=== PATIENT | male | born 1975 ===

== ENCOUNTER 2017-02-01 21:39 | Observation (INO) ==
[2017-02-01] MEDS ORDERED: ALUM/MAG/SIMETH/LIDO VISC 1:1 30 ML BOTTLE PO STA (22:03)
[2017-02-01] MEDS ORDERED: ALUM/MAG/SIMETH/LIDO VISC 1:1 30 ML BOTTLE PO ONE (22:07)
[2017-02-01 22:27] LABS: Basophils % 0.2 % (0.0-0.8); Eosinophils # 0.1 10*3/uL (0.0-0.87); Eosinophils % 0.8 % (0.00-10.9); Hematocrit 44.8 VOL% (42.0-52.0); Hemoglobin 15.7 GM/DL (14.0-18.0); Immature Granulocytes % 0.3 %; Immature Granulocytes Absolute 0.03 #; Lymphocytes # 1.7 10*3/uL (1.4-4.0); Lymphocytes % 16.3 % (21.2-54.2); Mean Corpuscular Hemoglobin 31 PG (27-34); Mean Corpuscular Volume 88.7 FL (87-102); Mean Platelet Volume 9.7 FL (9.6-12.0); Monocytes % 9.5 % (1.7-12.7); Neutrophils # 7.7 10*3/uL (1.4-7.4); Neutrophils % 72.9 % (38.7-73.9); Platelet Count 187 T/CUMM (130-400); Red Blood Count 5.05 MC/CUMM (3.8-5.5); Red Cell Distribution Width 13.5 % (9.3-17.3); White Blood Count 10.6 T/CUMM (4-12)
--- NOTE | 2017-02-01 22:39 | Emergency Department Note ---
IDeven Kasabria, am scribing for, and in the presence of, Moises Kirkland Jr., MD 22:09. Marita Phoenix Marvin Jr., MD, personally performed the services described in this documentation, ascribed by Thais Carvalho in my presence, and it is both accurate and complete . Arrival - Arrival Chief Complaint: Abdominal / Flank Pain Stated Complaint: SENT BY [facility] FOR ABD PAIN ED Nursing Triage Note: Patient to triage with c/o epigastric ABD pain since this morning and patient went to [facility] where he was dx with early appendicitis and sent here POV. Patient has CT report, image, records from [facility]. Mode of Arrival: Ambulatory Limitations: No Limitations Source: Patient, Old Records Reviewed (Records that were submitted from the other hospital.) - History of Present Illness HPI Narrative: This is a 41 y/o [place] male presenting to the ED with c/o epigastric abdominal pain that onset this morning. Pt was transferred from [facility] for further evaluation for appendicitis. Pt states the physician at [facility] did not see appendicitis but the radiologist stated appendicitis was present. Pt has had CT report, image, and records from [facility] transferred over with him. He states he has not had an appetite since the onset of the pain. He describes the pain as pressure. After receiving the GI cocktail at [facility] he felt better but 1 hour later the pain onset again. He was nauseated earlier this morning but since has resolved and he denies fever, chills, vomiting, diarrhea, and dysuria. His PMHx is consistent with "some kind of valve problem". Pt has been taking Ibuprofen for his right knee pain for one week. At the worst the pain was severe. Consistency: constant Severity: moderate Allergies/Adverse Reactions: Allergies Allergy/AdvReac Type Severity Reaction Status Date / Time No Known Allergies Allergy Unverified 02/01/17 21:50 Home Medications: Home Medications Medication Instructions Recorded Confirmed Type No Known Home Medications [No 02/01/17 02/01/17 History Known Home Medications] Review of System - Review of System 12 point system: reviewed and no additional remarkable complaints except as stated - Review of System Constitutional: Absent: chills, fever, weakness Eyes: Absent: vision change Head/Ears/Nose/Throat: Absent: nasal drainage Respiratory: Absent: cough, wheezing Cardiovascular: Absent: chest pain, dyspnea on exertion Gastrointestinal: Present: abdominal pain (epigastric pressure ). Absent: nausea, vomiting, diarrhea Genitourinary male: Absent: dysuria Musculoskeletal: Absent: arm pain, back pain Neurological: Absent: headache, weakness, confusion, vertigo Psychiatric: Absent: anxiety Endocrine: Absent: fatigue Hematological/Lymphatic: Absent: easy bleeding Allergic/Immunologic: Absent: facial swelling Medical,Surgical,& Family Hx - Medical History Cardio: History of: Cardiovascular Problems ("some kind of valve problem") - Social History Smoking Status: Never smoker Frequency of Alcohol Use: Occasionally Type of Drug Use: None Exam Physical Examination: General: Well-developed well-nourished, no apparent distress. Head: Normocephalic, atraumatic. Eyes: PERRLA, EOMI. Nose: No obvious acute deformities or discharge. Mouth: No obvious acute injury. Neck: Full range of motion without obvious pain. No midline tender to palpation. Lymphatic: no significant lymphadenopathy noted. Lungs: Clear to auscultation bilaterally, normal and equal air movement bilaterally, no obvious rales or wheezing. Heart: regular rate and rhythm, no obvious mummers. Abdomen: Soft nontender, nondistended, normal active bowel sounds. Patient says he is not tender to palpation but the pain is in his epigastric area Skin: No obivous acute lesions noted Musculoskeletal: No gross deformities. Neurological: No focal findings, cranial nerves II through XII grossly normal. Psychiatric: Appropriate mood.. : Deferred Vital Signs: Vital Signs Temperature 98.0 F 02/01/17 21:45 Pulse Rate 74 02/01/17 21:45 Respiratory Rate 18 02/01/17 21:45 Blood Pressure 147/81 02/01/17 21:45 O2 Sat by Pulse Oximetry 98 02/01/17 21:45 Course Course Narrative: Differential diagnosis, GERD, secondary to nonsteroidal drugs, hiatal hernia, acute appendicitis is possible but low probability considering the location and response to therapy. - Reevaluation(s) Reevaluation #1: This abdominal pain is epigastric and is not compatible clinically with acute appendicitis. His white count is normal also. I talked to Dr. Pang and he will admit this patient overnight for observation. Time: 22:38 Results - Labs CBC & BMP: 02/01/17 22:21 Lab Results: I have reviewed the patients labs Disposition Clinical Impression: Epigastric abdominal pain Case discussed with: patient, patient's family Disposition: Still a Patient Condition: Stable Time of Disposition: 22:39
[2017-02-01] MEDS ORDERED: ACETAMINOPHEN 325 MG TABLET PO PRN (23:17)
[2017-02-01] MEDS ORDERED: MORPHINE 2 MG/1 ML SYRINGE IV PRN (23:17)
[2017-02-01] MEDS ORDERED: ONDANSETRON 4 MG/2 ML VIAL IV PRN (23:17)
[2017-02-01] MEDS: DEXTROSE 5% NACL 0.45% 1,000 ML IV SCH (23:55)
[2017-02-02] MEDS: DEXTROSE 5% NACL 0.45% 1,000 ML IV SCH (08:16)
--- NOTE | 2017-02-02 08:45 | General Surg History&Physical ---
Assessment and Plan - Time spent with patient Time spent with patient: Greater than 30 minutes (1) Epigastric abdominal pain Status: Acute Assessment and plan: The etiology of this is unclear. I think it is clear that he does not have acute appendicitis. This could be gallbladder related or could be gastritis from ibuprofen usage. We will check a gallbladder ultrasound. Current Visit: Yes History of Present Illness Chief complaint: Abdominal pain History of present illness: Mr. Pederson is a 41 year old male Who had a sudden onset of epigastric pain yesterday morning. This pain lasted for several hours and then subsided and then returned. It is since resolved completely and he denies any pain this morning. He described the pain as severe and it did not radiate. He did not have nausea or vomiting associated with it. He does not know of aggravating or alleviating factors. He has been taking a good bit of ibuprofen because of recent knee problem. He has not had fever or chills. He had a CT scan that suggested early appendicitis. He has not had any pain in his lower abdomen or right lower quadrant. Home Medications Medication Instructions Recorded Confirmed Type No Known Home Medications [No 02/01/17 02/01/17 History Known Home Medications] Allergies Allergy/AdvReac Type Severity Reaction Status Date / Time No Known Allergies Allergy Unverified 02/01/17 21:50 Medical,Surgical,& Family Hx - Medical History Cardio: History of: Cardiovascular Problems ("some kind of valve problem") Musculoskeletal: Comment Only: Musculoskeletal Problems (right knee dislocation. brace in place.) - Surgical History Surgical History: noncontributory - Family History Family History: Reports;: Family Diabetes - Social History Smoking Status: Never smoker Frequency of Alcohol Use: Occasionally Type of Drug Use: None Exam - Constitutional Vitals: Period Temp Pulse Resp BP Sys/Edward Pulse Ox Last 24 Hr 98.0 F-98.6 F 58-74 16-20 121-147/70-81 96-98 General appearance: no acute distress - Head Head exam: Present: normocephalic - Eye Eye exam: Absent: scleral icterus - ENT Mouth exam: Present: normal voice - Neck Neck exam: Present: trachea midline. Absent: tenderness - Respiratory Respiratory exam: Present: clear to auscultation bilaterally. Absent: accessory muscle use - Cardiovascular Cardiovascular exam: Present: RRR - GI/Abdominal GI/Abdominal exam: Present: soft. Absent: distended, mass, tenderness, rebound - Back Exam Back exam: Present: normal inspection - Neurological Exam Neurological exam: Present: alert, oriented X3. Absent: motor sensory deficit Speech: Present: normal - Skin Skin exam: Present: normal color - Constitutional Constitutional: Absent: chills, fever(s), weight loss - EENT Nose, mouth and throat: Absent: hoarseness - Cardiovascular Cardiovascular: Absent: chest pain at rest, chest pain with activity, dyspnea, dyspnea on exertion, syncope - Respiratory Respiratory: Absent: dyspnea, hemoptysis, dyspnea on exertion - Gastrointestinal Gastrointestinal: Present: abdominal pain. Absent: hematemesis, hematochezia, nausea, vomiting, jaundice - Genitourinary Genitourinary: Absent: dysuria, hematuria - Musculoskeletal Musculoskeletal: Absent: back pain - Neurological Neurological: Absent: focal weakness, syncope - Endocrine Endocrine: Absent: polyuria Hematologic/Lymphatic: Absent: easy bleeding, easy bruising Results - Labs CBC & BMP: 02/01/17 22:21 Lab Results: I have reviewed the past 24 hour labs - Diagnostic Findings Procedure: CT Abdomen and Pelvis: report reviewed by me, Ultrasound: pending
--- NOTE | 2017-02-02 10:10 | Ultrasound Report ---
US gallbladder Indication: Epigastric pain. Comparison: CT abdomen pelvis dated February 01, 2017. Technique: Multiple longitudinal and transverse real-time sonographic images of the right upper quadrant of the abdomen are obtained. Findings: The liver measures 17.5 cm and demonstrates normal echogenicity without focal abnormality on submitted images. The gallbladder is normal in size and demonstrates no wall thickening, abnormal intraluminal echoes, or pericholecystic fluid. The sonographic Condon's sign is negative. The common duct measures 0.4 cm in diameter and there is no evidence of significant intrahepatic ductal dilation. Right kidney measures 11.0 cm. Pancreas obscured. IMPRESSION: Unremarkable right upper quadrant ultrasound. PROCEDURE INTERPRETED AT [facility] [place] DEPARTMENT OF RADIOLOGY Final Report Signed by: Dr Ananth Brown
[2017-02-02] MEDS: PANTOPRAZOLE 40 MG TABLET PO SCH (10:32)
--- NOTE | 2017-02-02 14:31 | Gastrointestinal Consult Note ---
<Ellie Lucia - Last Filed: 02/02/17 14:26> Assessment and Plan (1) Epigastric abdominal pain Status: Acute Assessment and plan: 02/02-sudden onset of epigastric pain on yesterday with associated nausea. Recent ibuprofen use for the past 1-2 weeks at [address] of abdomen at outside facility showed possible early signs of appendicitis. Gallbladder ultrasound normal. No prior endoscopy in past. Plan for tentative EGD tomorrow to further evaluate source of pain. Plan an addendum to followed by Dr. Krishna. Current Visit: Yes History of Present Illness Chief complaint: Epigastric pain History of present illness: Mr. Pederson is a 41 year old male who presented to the hospital with sudden onset of epigastric pain on yesterday. Patient states that he woke up around 10 AM yesterday shortly after waking he had a fairly sudden onset of epigastric pain. He states the pain was severe in nature at times but was not associated with any other symptoms. Patient states that the pain continued throughout the morning in which she had also some episodes of nausea later without vomiting. He presented to the [facility] for further evaluation. He underwent a CT scan of abdomen at [facility] and was found what was thought to be early signs of appendicitis. Patient however denied any lower abdominal right lower quadrant pain. No leukocytosis or fever. Patient denies any fever or chills associated with this. Denies any recent weight loss, night sweats, melena or hematochezia. Denies any history of peptic ulcer disease. Patient states the only change to his recent history is that 1-2 weeks ago he began taken upwards of 1200 mg of ibuprofen daily for pain associated to right knee injury. He does not smoke and states that he is only a social drinker. Hemoglobin stable at 15.7. No other lab work available at this time. Gallbladder ultrasound was unremarkable. Denies family history of gallbladder disease. Patient has never had endoscopy in the past. Denies any reflux, dysphagia, belching or bloating. Surgery has consulted and does not feel this is appendicitis at this time. Home Medications Medication Instructions Recorded Confirmed Type No Known Home Medications [No 02/01/17 02/01/17 History Known Home Medications] Allergies Allergy/AdvReac Type Severity Reaction Status Date / Time No Known Allergies Allergy Unverified 02/01/17 21:50 Medical,Surgical,& Family Hx - Medical History Cardio: History of: Cardiovascular Problems ("some kind of valve problem") Musculoskeletal: Comment Only: Musculoskeletal Problems (right knee dislocation. brace in place.) - Family History Family History: Reports;: Family Diabetes - Social History Smoking Status: Never smoker Frequency of Alcohol Use: Occasionally Type of Drug Use: None 12 point system: reviewed and no additional remarkable complaints except as stated - Constitutional Constitutional: Present: as per HPI - EENT Eyes: Present: as per HPI Ears: Present: as per HPI Nose, mouth and throat: Present: as per HPI - Cardiovascular Cardiovascular: Present: as per HPI - Respiratory Respiratory: Present: as per HPI - Gastrointestinal Gastrointestinal: Present: as per HPI, abdominal pain, nausea - Genitourinary Genitourinary: Present: as per HPI - Musculoskeletal Musculoskeletal: Present: as per HPI - Neurological Neurological: Present: as per HPI - Psychiatric Psychiatric: Present: as per HPI - Endocrine Endocrine: Present: as per HPI - Hematologic/Lymphatic Hematologic/Lymphatic: Present: as per HPI Exam - Constitutional Vitals: Period Temp Pulse Resp BP Sys/Edward Pulse Ox Last 24 Hr 97.6 F-98.6 F 55-74 16-20 121-147/70-81 96-98 General appearance: normal weight, no acute distress - Head Head exam: Present: normal inspection, normocephalic - Eye Eye exam: Present: other (lids and conjunctiva unremarkable). Absent: scleral icterus - ENT ENT exam: Present: normal exam, normal oropharynx - Neck Neck exam: Present: normal inspection - Respiratory Respiratory exam: Present: clear to auscultation bilaterally. Absent: rales, rhonchi, wheezes - Cardiovascular Cardiovascular exam: Present: regular rate and rhythm. Absent: diastolic murmur , JVD, systolic murmur - GI/Abdominal GI/Abdominal exam: Present: normal bowel sounds, tenderness, soft. Absent: ascites, distended, mass, organomegaly - Extremities Exam Extremities exam: Present: normal inspection, full ROM - Back Exam Back exam: Present: normal inspection - Neurological Exam Neurological exam: Present: alert, oriented X3 - Psychiatric Psychiatric exam: Present: normal affect, normal mood - Skin Skin exam: Present: normal color, warm, dry Results - Labs CBC & BMP: 02/01/17 22:21 Lab Results: I have reviewed the past 24 hour labs - Diagnostic Findings Procedure: CT Abdomen and Pelvis: report reviewed by me, Ultrasound: report reviewed by me <Bernard Krishna - Last Filed: 02/02/17 18:51> History of Present Illness Chief complaint: 3030 History of present illness: Mr. Pederson is a 41 year old male Exam - Constitutional Vitals: Period Temp Pulse Resp BP Sys/Edward Pulse Ox Last 24 Hr 97.6 F-98.6 F 55-74 16-20 105-147/59-81 95-98 Results - Labs CBC & BMP: 02/01/17 22:21
--- NOTE | 2017-02-03 08:43 | General Surgery Progress Note ---
Assessment and Plan (1) Epigastric abdominal pain Status: Acute Assessment and plan: The etiology of this is unclear. I think it is clear that he does not have acute appendicitis. This could be gallbladder related or could be gastritis from ibuprofen usage. We will check a gallbladder ultrasound. 02/03: The patient feels well and denies abdominal pain this morning. His abdomen is benign. The epigastric pain that he had a subsiding. He is for upper endoscopy this morning to see if he has a gastric ulcer. Current Visit: Yes Subjective Patient reports: Present: feels better. Absent: still having pain, nausea, vomiting Exam - Constitutional Vitals: Period Temp Pulse Resp BP Sys/Edward Pulse Ox Last 24 Hr 97.6 F-98.3 F 55-66 16-20 105-132/59-76 95-99 General appearance: no acute distress - Eye Eye exam: Absent: scleral icterus - Respiratory Respiratory exam: Absent: accessory muscle use - GI/Abdominal GI/Abdominal exam: Present: soft. Absent: distended, tenderness Results - Labs CBC & BMP: 02/01/17 22:21
[2017-02-03] MEDS ORDERED: LIDOCAINE 2% 5 ML VIAL ONE (10:00)
[2017-02-03] MEDS ORDERED: PROPOFOL 200 MG/20 ML VIAL IV ONE (10:00)
--- NOTE | 2017-02-03 10:20 | History and Physical Update ---
History and Physical Update - Physical Exam Mental Status: alert and oriented Heart: regular rate and rhythm Lung: clear to auscultation Abdomen: within normal limits Vitals: within normal limits
--- NOTE | 2017-02-03 10:25 | Operative Note ---
Pre-op diagnosis: Epigastric pain Procedure: EGD with biopsy 41-year-old male with complaints of epigastric pain history of nonsteroidal use now for EGD to further evaluate. Informed consent was obtained Patient was sedated with MAC anesthesia per anesthesia protocol. Patient placed left lateral decubitus position the Olympus flexible video upper endoscope was inserted into the oral cavity under direct vision the esophagus was intubated. Findings: Esophagus-normal proximal mid esophageal mucosa distal esophagus small hiatal hernia. Mild asymptomatic esophageal stricture is seen. No esophagitis, Nobles's or varices were identified. Stomach-normal insufflation. Diffuse gastritis is seen predominantly antrum the stomach biopsies were taken. Remainder stomach is normal to direct retroflexed views of the body fundus and cardia. No definite ulceration was identified. Pylorus-normal Duodenum-normal for the bulb and duodenum to the third portion of the duodenum. The patient tolerated procedure well and was discharged to recovery in good condition. Postop diagnosis: 1. Gastritis-continue PPI treatment avoid nonsteroidals. 2. Epigastric pain likely secondary to the above. Ultrasound was negative if symptoms persist consider HIDA scan but I suspect this is more gastritis related. Anesthesia: [facility] – [place] Surgeon / Physician: Bernard Krishna Estimated blood loss: none Specimens: other (Antral gastritis) Condition: stable Disposition: post procedure unit Results - Labs CBC & BMP: 02/01/17 22:21 Discharge Plan - Discharge Medications No Action No Known Home Medications [No Known Home Medications] - Follow Up or Referral - Forms/Instructions
--- NOTE | 2017-02-03 10:45 | Anesthesia Post-Op ---
Anesthesia Post OP - Post Ansesthetic Evaluation Patient seen in post op: Yes Resp: within normal limits CV: within normal limits Mental: within normal limits Temp: within normal limits [id number]: within normal limits Nausea and Vomiting: within normal limits Pain: within normal limits
[2017-02-03] MEDS: PANTOPRAZOLE 40 MG TABLET PO SCH (11:11)
[2017-02-03 12:35] VITALS: BP 114/69
--- NOTE | 2017-02-03 14:13 | Discharge Summary ---
Hospital Course - Hospital Course Hospital Course: The patient is a 41-year-old male who was admitted with concerns for early appendicitis. However, upon further evaluation this did not feel to be the case. Gallbladder ultrasound did not reveal any signs of cholecystitis either. Gastroenterology was consulted to perform an EGD and discovered gastritis. Patient was clinically much improved at the time of discharge as he was pain- free and tolerating oral intake without difficulty. He was discharged in good condition on PPI twice daily as well as diet information for gastritis and follow-up as needed. No complications to note. Diagnosis - Discharge Diagnosis (1) Gastritis Status: Acute Specialty Discharge - Follow Up or Referrals Follow up with: Bernard Krishna MD [Physician] - (As needed) Yair Pang III., MD [Physician] - (As needed) Discharge Plan - Discharge Data Disposition: Disch To Home/Self Care Condition at Discharge: Stable Discharge Diet: other (Diet as below) Activity: resume usual activities as tolerated Driving: no restrictions Contact your physician if you experience:: fever over 101, Nausea/Vomiting, Bleeding, pain uncontrolled by pain medications - Discharge Medications New Pantoprazole Tab [Protonix Tab] 40 mg PO BID #60 tablet - Follow Up or Referral Follow Up: Yair Pang III., MD [Physician] - (As needed) Bernard Krishna MD [Physician] - (As needed) - Forms/Instructions Instructions: Gastritis (DC), Diet for Ulcers and Gastritis (GEN), Upper Gastrointestinal Endoscopy (DC) Exam - Constitutional Vitals: Period Temp Pulse Resp BP Sys/Edward Pulse Ox Last 24 Hr 96.2 F-98.3 F 55-83 16-23 100-142/46-74 92-99 General appearance: no acute distress - Head Head exam: Present: normal inspection, normocephalic - Eye Eye exam: Absent: conjunctival injection, scleral icterus - Respiratory Respiratory exam: Present: clear to auscultation bilaterally - Cardiovascular Cardiovascular exam: Present: regular rate and rhythm - GI/Abdominal GI/Abdominal exam: Present: normal bowel sounds, soft. Absent: distended, guarding, Condon's sign, organomegaly, tenderness - Extremities Exam Extremities exam: Absent: calf tenderness, edema - Neurological Exam Neurological exam: Present: alert, oriented X3 - Psychiatric Psychiatric exam: Present: normal affect, normal mood - Skin Skin exam: Present: normal color, warm Discharge Results Procedures and tests throughout hospitalization: 1. EGD: Dr. Krishna - Gastritis - Imaging and Cardiology Procedure: CT Abdomen and Pelvis: image reviewed by me, report reviewed by me, Ultrasound: image reviewed by me, report reviewed by me (Gallbladder) DS: Provider Date of admission: 02/01/17 22:39 Primary care physician: Red Patel MD Attending physician on admission: Yair Pang III., Consults: 02/02/17 12:50 Consult to Physician [CONS] Routine Comment: epigastric pain Consulting Provider: Bernard Krishna Consulting Provider Notified: Yes When should Consulting Provider be notified: Now Person Notified: jian called Date Notified: 02/02/17 Time Notified: 13:26 Discharging clinician: Hui Velasquez PA-C
--- NOTE | 2017-02-04 11:25 | Pathology Report from [facility] ---
[facility] ACCESSION # : [id number] PATIENT NAME : Marciano Mccain ORDERING DR : ALAN GUY MD CLINICAL HX: Epigastric pain POST-OP DX: Same SPECIMEN INFO: Gastric BX GROSS DESCRIPTION: Received in formalin labeled MARCIANO MCCAIN are two fountain tissue fragments measuring 0.4 x 0.2 cm collectively submitted in one cassette. DIAGNOSIS FOR MARCIANO MCCAIN: GASTRIC BIOPSY: Chronic superficial gastritis. No evidence of malignancy. Special stain for H. pylori-like organisms is NEGATIVE. COLLECTED DATE: 02/03/2017 [facility] REPORT DATE: 02/04/2017 ELECTRONICALLY SIGNED BY: Da Mckinnon III, M.D. 02/04/2017 - 9:46:59 [email or web address]
== END 2017-02-03 14:40 | disposition home or self-care (01) ==
LOC: N.ED 21:39 → N.EDINP 21:39 → N.3E 23:04
PROVIDERS: ADMIT Surgery; ATTEND Surgery